=== PATIENT | female | born 1970 | race Hispanic/Latino ===

== ENCOUNTER 2018-04-10 23:16 | Emergency (ER) | payer SELFPAY ==
--- NOTE | 2018-04-10 23:49 | ER ---
Nurse's Notes [facility] Name: Azucena Moyer Age: 47 yrs Sex: Female : 1970 Arrival Date: 04/10/2018 Time: 23:19 Bed 15 Private MD: None, None Diagnosis: Left breast cellulitis Presentation: 04/10 23:29 Presenting complaint: Patient states: Patient reports multiple abscesses on the back of ea the head and boil to left chest that started a week ago. Pt reports purulent drainage to left breast. Complains of pain to neck 01/27. Transition of care: patient was not received from another setting of care. Onset of symptoms was April 10, 2018. Risk Assessment: Do you want to hurt yourself or someone else? Patient reports no desire to harm self or others. Initial Sepsis Screen: Does the patient meet any 2 criteria? No. Patient's initial sepsis screen is negative. Does the patient have a suspected source of infection? Yes: Skin breakdown/wound. Care prior to arrival: None. 23:29 Method Of Arrival: Ambulatory ea 23:29 Acuity: SOPHIE 3 ea Triage Assessment: 23:32 General: Appears uncomfortable, Behavior is calm, cooperative, appropriate for age. ea Pain: Complains of pain in right posterior aspect of neck. EENT: No signs and/or symptoms were reported regarding the EENT system. Neuro: Level of Consciousness is awake, alert, obeys commands, Oriented to person, place, time, situation. Cardiovascular: Patient's skin is warm and dry. Respiratory: Airway is patent Respiratory effort is even, unlabored, Respiratory pattern is regular, symmetrical. Derm: Wound noted left breast. - Immunization history:: Adult Immunizations up to date. - Social history:: Smoking status: Patient/guardian denies using tobacco. - Ebola Screening: : No symptoms or risks identified at this time. - Family history:: not pertinent. - Hospitalizations: : No recent hospitalization is reported. Screenin:32 Abuse screen: Denies threats or abuse. Nutritional screening: No deficits noted. ea Tuberculosis screening: No symptoms or risk factors identified. Fall Risk None identified. Assessment: 23:53 Reassessment: Patient and/or family updated on plan of care and expected duration. Pain ea level reassessed. Patient is alert, oriented x 3, equal unlabored respirations, skin warm/dry/pink. Discharge isntruction given to patient, verbalized the understanding of instruction. Vital Signs: 23:31 BP 120 / 80; Pulse 90; Resp 18; Temp 98.4; Pulse Ox 99% ; Weight 54.43 kg; Height 5 ft. ea 3 in. (160.02 cm); 23:31 Body Mass Index 21.26 (54.43 kg, 160.02 cm) ea ED Course: 23:19 Patient arrived in ED. es 23:19 None, None is Private Physician. es 23:22 Vinay Henry MD is Attending Physician. rn 23:24 Lyubov Loya is Primary Nurse. cc3 23:30 Triage completed. ea 23:33 Patient has correct armband on for positive identification. Bed in low position. Call ea light in reach. Side rails up X 1. 23:33 Arm band placed on right wrist. Patient placed in an exam room, on a stretcher, on ea pulse oximetry. 23:54 No provider procedures requiring assistance completed. Patient did not have IV access ea during this emergency room visit. Administered Medications: 23:45 Drug: Clindamycin 300 mg Route: PO; ea 23:55 Follow up: Response: Medication administered at discharge. ea Outcome: 23:47 Discharge ordered by . rn 23:54 Discharged to home ambulatory. ea 23:54 Condition: improved 23:54 Discharge instructions given to patient, Instructed on discharge instructions, follow up and referral plans. medication usage, Demonstrated understanding of instructions, follow-up care, medications, Prescriptions given X 1. 23:55 Patient left the ED. ea Signatures: Sera Moore Roman, MD MD rn Antunez, Elena, RN RN ea Cordel, Charlene cc3 Corrections: (The following items were deleted from the chart) 23:32 23:31 BP 120 / 80; Pulse 90bpm; Resp 18bpm; Pulse Ox 99%; Temp 98.4F; carmen ea
--- NOTE | 2018-04-10 23:49 | EDPHYS ---
Physician Documentation [facility] Name: Azucena Moyer Age: 47 yrs Sex: Female : 1970 Arrival Date: 04/10/2018 Time: 23:19 Bed 15 Private MD: None, None ED Physician iVnay Henry HPI: 04/10 23:41 This 47 yrs old Female presents to ER via Ambulatory with complaints of rn Abscess. 23:41 the patient presents with a swollen area of the left breast. Description: draining, rn erythematous, swollen. Onset: The symptoms/episode began/occurred 1 week(s) ago. Possible cause(s): unknown. Modifying factors: the symptoms are alleviated by squeezing the lesion and expressing the contents, the symptoms are aggravated by touching. Severity of symptoms: At their worst the symptoms were moderate, in the emergency department the symptoms have improved. The patient has experienced similar episodes in the past. REports has recurrent abscesses and swelling on scalp for years, gets better with abx, and has never needed incision and drainage, states fluid collects since had esau from head wound years ago. Recently noticed some swelling of left breast and tenderness, popped on its own, drained pus, reports had wound packed, but still swollen and needs abx. Not diabetic. . - Immunization history:: Adult Immunizations up to date. - Social history:: Smoking status: Patient/guardian denies using tobacco. - Ebola Screening: : No symptoms or risks identified at this time. - Family history:: not pertinent. - Hospitalizations: : No recent hospitalization is reported. ROS: 23:41 Constitutional: Negative for fever, chills, and weight loss, Neck: Negative for injury, rn pain, and swelling, Cardiovascular: + left breast pain, no chest pain Respiratory: Negative for shortness of breath, cough, wheezing, and pleuritic chest pain, Abdomen/GI: Negative for abdominal pain, nausea, vomiting, diarrhea, and constipation, MS/Extremity: Negative for injury and deformity, Skin: + swelling and redness of left breast Neuro: Negative for headache, weakness, numbness, tingling, and seizure. Exam: 23:41 Constitutional: This is a well developed, well nourished patient who is awake, alert, rn and in no acute distress. Head/Face: Normocephalic, 2 1cm areas of fluid collection occiput of scalp, no hair overlying, seems old surgical wound, no erythema/warmth, no skull depression. Chest/axilla: + left breast with 3cm induration around central open wound, no current drainage, no nipple changes, no fluctuance, wound with packing. Vital Signs: 23:31 BP 120 / 80; Pulse 90; Resp 18; Temp 98.4; Pulse Ox 99% ; Weight 54.43 kg; Height 5 ft. ea 3 in. (160.02 cm); 23:31 Body Mass Index 21.26 (54.43 kg, 160.02 cm) ea MDM: 23:22 Patient medically screened. rn 23:41 Differential diagnosis: abscess, cellulitis. Data reviewed: vital signs, nurses notes, rn and as a result, I will discharge patient. Counseling: I had a detailed discussion with the patient and/or guardian regarding: the historical points, exam findings, and any diagnostic results supporting the discharge/admit diagnosis, the need for outpatient follow up, to return to the emergency department if symptoms worsen or persist or if there are any questions or concerns that arise at home. Special discussion: I discussed with the patient/guardian in detail that at this point there is no indication for admission to the hospital. It is understood, however, that if the symptoms persist or worsen the patient needs to return immediately for re-evaluation. ED course: Pt with breast abscess that was opened and packed prior to arrival here, has had multiple abscesses in past, is here for abx, no change in chronic fluid collection of scalp, will dc with clindamycin and return precautions. Breast changes are acute, not chronic, but still recommend breast cancer screening to patient when infection is treated. . Administered Medications: 23:45 Drug: Clindamycin 300 mg Route: PO; ea 23:55 Follow up: Response: Medication administered at discharge. ea Disposition: 04/10/18 23:47 Discharged to Home. Impression: Left breast cellulitis. - Condition is Stable. - Discharge Instructions: Skin Abscess, Breast Self-Awareness, Cellulitis, Adult, Breast Cancer, Female. - Prescriptions for Clindamycin HCl 300 mg Oral Capsule - take 1 capsule by ORAL route every 6 hours for 10 days; 40 capsule. - Medication Reconciliation Form, Thank You Letter, Antibiotic Education, Prescription Opioid Use form. - Follow up: Private Physician; When: As needed; Reason: Recheck today's complaints, Re-evaluation by your physician. - Problem is new. - Symptoms have improved. Signatures: Vinay Henry MD MD rn Antunez, Elena, RN RN ea Corrections: (The following items were deleted from the chart) 23:55 23:47 04/10/2018 23:47 Discharged to Home. Impression: Left breast cellulitis. ea Condition is Stable. Forms are Medication Reconciliation Form, Thank You Letter, Antibiotic Education, Prescription Opioid Use. Follow up: Private Physician; When: As needed; Reason: Recheck today's complaints, Re-evaluation by your physician. Problem is new. Symptoms have improved. rn
[2018-04-10] MEDS ORDERED: CLINDAMYCIN HCL 150 MG CAP ONE (23:52)
== END 2018-04-10 23:55 | disposition home or self-care (01) ==
LOC: ER 23:16
DX: N61.0 Mastitis without abscess (principal)
CPT/HCPCS: 99283

== ENCOUNTER 2018-08-07 10:17 | Emergency (ER) | payer SELFPAY ==
--- OUTSIDE RECORDS SUMMARY | 2018-08-07 10:19 | XMS REPORT ---
:1970 [facility] Address [address] [place] [address] Dr. Bowman [address] [place] [id number] Care Team Providers Name Role Phone Unavailable Unavailable Unavailable Problems This patient has no known problems. Allergies, Adverse Reactions, Alerts This patient has no known allergies or adverse reactions. Medications This patient has no known medications.
[2018-08-07] MEDS ORDERED: NA CHLORIDE 0.9% 1,000 ML ONE (10:57)
[2018-08-07 11:16] LABS: Absolute Lymphocytes (CBC) 1.6 K/uL (0.7-4.9); Absolute Monocytes 0.4 K/uL (0.1-1.3); Absolute Neutrophil 2.7 K/uL (1.8-8.0); Basophils % 1.2 % (0-1.3); Eosinophils % 0.9 % (0-4.4); Hematocrit 38.7 % (36.0-45.0); Lymphocytes % 32.7 % (15.3-44.8); MPV 9.1 fL (7.6-11.3); Monocytes % 9.1 % (3.3-12.3); RBC Red Blood Cell Count 4.05 M/uL (3.86-4.86)
[2018-08-07 11:35] LABS: ALT/SGPT 12 U/L (12-78); AST/SGOT 8 U/L (15-37); Albumin 3.8 g/dL (3.4-5.0); Alkaline Phosphatase 73 U/L (45-117); BUN Blood Urea Nitrogen 9 mg/dL (7-18); Bicarbonate 28 mmol/L (21-32); Bilirubin Direct 0.1 mg/dL (0-0.2); Bilirubin Total 0.4 mg/dL (0.2-1.0); Glucose Level 303 mg/dL (74-106); Lipase 29 U/L (73-393); Potassium 3.6 mmol/L (3.5-5.1); Protein, Total 7.3 g/dL (6.4-8.2); Sodium Level 139 mmol/L (136-145)
[2018-08-07] MEDS ORDERED: MORPHINE 4 MG/ML SYR ONE (11:52)
[2018-08-07] MEDS ORDERED: ONDANSETRON 4 MG/2 ML VIAL ONE (11:52)
--- NOTE | 2018-08-07 12:21 | RAD REPORT ---
EXAM DESCRIPTION: CT - Abdomen Pelvis Wo Contrast - 08/07/2018 12:13 pm CLINICAL HISTORY: Abdominal pain. ABD PAIN COMPARISON: No comparisons TECHNIQUE: CT imaging of the abdomen and pelvis was performed without contrast. Solid organ, bowel a nd vascular assessment is limited due to lack of IV and oral contrast. All CT scans are performed using dose optimization technique as appropriate and may include automated exposure control or mA/KV adjustment according to patient size. FINDINGS: The lower lung kaufman are clear. The liver, spleen, pancreas, adrenal glands and kidneys are within normal limits for a limited non-co ntrast examination. No bowel obstruction, free air, free fluid or abscess. Moderate fecal retention in the colon. The zakiya endix is normal. The osseous structures are within normal limits. IMPRESSION: Moderate fecal retention in the colon. A limited non-contrast examination was performed as detailed.
[2018-08-07] MEDS ORDERED: INSULIN -REGULAR HUMAN 50 UNIT/0.5 ML ML ONE (12:54)
--- NOTE | 2018-08-07 13:37 | ER ---
Nurse's Notes [facility] Name: Azucena Moyer Age: 48 yrs Sex: Female : 1970 Arrival Date: 08/07/2018 Time: 10:19 Bed 15 Private MD: None, None Diagnosis: Abdominal and pelvic pain;Hyperglycemia, unspecified;Diabetes mellitis Presentation: 08/07 10:21 Presenting complaint: Patient states: right flank pain that began 2 months ago. Pt aa5 states "I was seen in [facility] and [facility] and back in June and they said that it was ulcerative colitis but now the pain is back". Pt denies N/V/D. Transition of care: patient was not received from another setting of care. Onset of symptoms was May 2018. Risk Assessment: Do you want to hurt yourself or someone else? Patient reports no desire to harm self or others. Initial Sepsis Screen: Does the patient meet any 2 criteria? No. Patient's initial sepsis screen is negative. Does the patient have a suspected source of infection? No. Patient's initial sepsis screen is negative. Care prior to arrival: None. 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 - Social history:: Smoking status: Patient/guardian denies using tobacco. - Ebola Screening: : No symptoms or risks identified at this time. Screenin:29 Abuse screen: Denies threats or abuse. Nutritional screening: No deficits noted. tw2 Tuberculosis screening: No symptoms or risk factors identified. Fall Risk None identified. Assessment: 10:56 General: Appears in no apparent distress. slender, Behavior is calm, cooperative, tw2 appropriate for age. Pain: Complains of pain in right flank. Neuro: Level of Consciousness is awake, alert, obeys commands, Oriented to person, place, time, situation. Cardiovascular: Denies chest pain, shortness of breath, Heart tones S1 S2 Patient's skin is warm and dry. Respiratory: Airway is patent Respiratory effort is even, unlabored, Respiratory pattern is regular, symmetrical, Breath sounds are clear bilaterally. GI: Abdomen is flat, Bowel sounds present X 4 quads. : No signs and/or symptoms were reported regarding the genitourinary system. EENT: No signs and/or symptoms were reported regarding the EENT system. Derm: No signs and/or symptoms reported regarding the dermatologic system. Musculoskeletal: Circulation, motion, and sensation intact. Range of motion: intact in all extremities. 11:29 Reassessment: Patient appears in no apparent distress at this time. Patient and/or tw2 family updated on plan of care and expected duration. Pain level reassessed. Patient is alert, oriented x 3, equal unlabored respirations, skin warm/dry/pink. pt requesting something for "the pain", provider notified. Patient states symptoms have not improved. 12:30 Reassessment: Patient appears in no apparent distress at this time. Patient and/or tw2 family updated on plan of care and expected duration. Pain level reassessed. Patient is alert, oriented x 3, equal unlabored respirations, skin warm/dry/pink. 13:53 Reassessment: Patient appears in no apparent distress at this time. Patient and/or tw2 family updated on plan of care and expected duration. Pain level reassessed. Patient is alert, oriented x 3, equal unlabored respirations, skin warm/dry/pink. Vital Signs: 10:24 BP 112 / 73; Pulse 105; Resp 16 S; Temp 97.6(TE); Pulse Ox 100% on R/A; Weight 45.36 kg aa5 (R); Height 5 ft. 3 in. (160.02 cm) (R); Pain 10/10; 11:30 BP 114 / 70; Pulse 97; Resp 17; Pulse Ox 99% on R/A; tw2 13:03 BP 119 / 86; Pulse 99; Resp 16 S; Pulse Ox 100% on R/A; jl7 10:24 Body Mass Index 17.71 (45.36 kg, 160.02 cm) aa5 ED Course: 10:19 Patient arrived in ED. mr 10:20 None, None is Private Physician. mr 10:23 Triage completed. aa5 10:23 Arm band placed on. aa5 10:28 Mejia Arizmendi MD is Attending Physician. kdr 10:29 Dee Cason, VALENTÍN is Primary Nurse. tw2 10:29 Bed in low position. Call light in reach. tw2 12:12 CT completed. Patient tolerated procedure well. Patient moved to CT via wheelchair. sj Patient moved back from CT. 12:13 Abdomen In Process Unspecified. EDMS 12:31 Missed attempt(s): 24 gauge in right hand. Bleeding controlled, band aid applied, pc1 catheter tip intact. 13:52 No provider procedures requiring assistance completed. Patient did not have IV access tw2 during this emergency room visit. Administered Medications: Discontinued: NS 0.9% 1000 ml IV at 1 bolus Per protocol; 1000 mL bolus 11:45 Drug: Zofran 4 mg Route: IVP; Site: left antecubital; tw2 13:18 Follow up: Response: No adverse reaction tw2 11:47 Drug: morphine 4 mg Route: IVP; Site: left antecubital; tw2 13:18 Follow up: Response: No adverse reaction; Pain is decreased tw2 11:48 Drug: NS 0.9% 1000 ml Route: IV; Rate: 1 bolus; Site: left antecubital; tw2 13:21 Follow up: IV Status: IV infiltrated; no fluids infused tw2 12:43 CANCELLED (no iv access at this time.): Insulin Regular Human 6 units IVP once tw2 12:46 Drug: Insulin Regular Human 6 units {Co-Signature: [id number] (Netta Ogden RN).} Route: Sub-Q; tw2 Site: right upper arm; 13:19 Follow up: Response: No adverse reaction; Blood sugar is lowered tw2 Point of Care Testing: Blood Glucose: 10:43 Blood Glucose: 283 mg/dL; pc1 13:12 Blood Glucose: 178 mg/dL; pc1 Ranges: Intake: Outcome: 13:35 Discharge ordered by . kdr 13:52 Discharged to home ambulatory. tw2 13:52 Condition: stable 13:52 Discharge instructions given to patient, Instructed on discharge instructions, follow up and referral plans. no drinking with medication, no driving heavy equipment, medication usage, Demonstrated understanding of instructions, follow-up care, medications, Prescriptions given X 2. 13:53 Patient left the ED. tw2 Signatures: Dispatcher [employer] EDMS Mejia Arizmendi MD MD [facility] Jonnathan, Loretta mr Stubbs, AraceliFrancie Cannon RN RN aa5 Dee Cason RN RN tw2 Netta Ogden RN RN jl7 Tiago Rodriguez RN jl7 Corrections: (The following items were deleted from the chart) 10:27 10:21 Presenting complaint: Patient states: left flank pain that began 2 months ago. Pt aa5 states "I was seen in [facility] and [facility] and back in June and they said that it was ulcerative colitis but now the pain is back". Pt denies N/V/D aa5
--- NOTE | 2018-08-07 13:37 | EDPHYS ---
Physician Documentation [facility] Name: Azucena Moyer Age: 48 yrs Sex: Female : 1970 Arrival Date: 08/07/2018 Time: 10:19 Bed 15 Private MD: None, None ED Physician Mejia Arizmendi HPI: 08/07 10:45 This 48 yrs old Female presents to ER via Ambulatory with complaints of Flank kdr Pain. 10:45 The patient complains of pain in the right flank, right mid back and right low back. kdr The pain does not radiate. Onset: The symptoms/episode began/occurred at an unknown time. Has been present since he was discharged from [facility] in mid June. Modifying factors: The symptoms are alleviated by nothing. the symptoms are aggravated by movement, palpation/percussion. Associated signs and symptoms: Pertinent positives: nausea, vomiting, Decrease appetite ? weight loss. Severity of pain: At its worst the pain was mild moderate just prior to arrival, in the emergency department the pain has improved mildly. The patient has experienced similar episodes in the past, chronically. The patient was seen at [facility] and [facility] [[email or web address]] in the last two months for similar problems. 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 - Social history:: Smoking status: Patient/guardian denies using tobacco. - Ebola Screening: : No symptoms or risks identified at this time. ROS: 10:45 Constitutional: Negative for fever, chills - may have had weight loss, Eyes: Negative kdr for injury, pain, redness, and discharge, Neck: Negative for injury, pain, and swelling, Cardiovascular: Negative for chest pain, palpitations, and edema, Respiratory: Negative for shortness of breath, cough, wheezing, and pleuritic chest pain, Back: Negative for injury and pain, : Negative for injury, bleeding, discharge, and swelling, MS/Extremity: Negative for injury and deformity. 10:45 Skin: Negative for injury, rash, and discoloration, Neuro: Negative for headache, weakness, numbness, tingling, and seizure activity. Psych: Negative for depression, anxiety, suicide ideation, homicidal ideation, and hallucinations, Allergy/Immunology: Negative for hives, rash, and allergies, Endocrine: Negative for neck swelling, polydipsia, polyuria, polyphagia, and marked weight changes, Hematologic/Lymphatic: Negative for swollen nodes, abnormal bleeding, and unusual bruising. 10:45 Abdomen/GI: Positive for abdominal pain, nausea, anorexia, Negative for vomiting, black/tarry stool, rectal pain, rectal bleeding. Exam: 13:30 Constitutional: This is a well developed, well nourished patient who is awake, alert, kdr and in no acute distress. Head/Face: Normocephalic, atraumatic. Eyes: Pupils equal round and reactive to light, extra-ocular motions intact. Lids and lashes normal. Conjunctiva and sclera are non-icteric and not injected. Cornea within normal limits. Periorbital areas with no swelling, redness, or edema. Neck: Trachea midline, no thyromegaly or masses palpated, and no cervical lymphadenopathy. Supple, full range of motion without nuchal rigidity, or vertebral point tenderness. No Meningismus. Chest/axilla: Normal chest wall appearance and motion. Nontender with no deformity. No lesions are appreciated. Cardiovascular: Regular rate and rhythm with a normal S1 and S2. No gallops, murmurs, or rubs. Normal PMI, no JVD. No pulse deficits. Respiratory: Lungs have equal breath sounds bilaterally, clear to auscultation and percussion. No rales, rhonchi or wheezes noted. No increased work of breathing, no retractions or nasal flaring. Back: No spinal tenderness. No costovertebral tenderness. Full range of motion. Skin: Warm, dry with normal turgor. Normal color with no rashes, no lesions, and no evidence of cellulitis. MS/ Extremity: Pulses equal, no cyanosis. Neurovascular intact. Full, normal range of motion. Neuro: Awake and alert, GCS 15, oriented to person, place, time, and situation. Cranial nerves II-XII grossly intact. Motor strength 5/5 in all extremities. Sensory grossly intact. Cerebellar exam normal. Normal gait. Psych: Awake, alert, with orientation to person, place and time. Behavior, mood, and affect are within normal limits. 13:30 Abdomen/GI: Inspection: abdomen appears normal, Bowel sounds: active, diminished, in all quadrants, Palpation: soft, mild abdominal tenderness, in the anterior aspect of right lateral abdomen. Vital Signs: 10:24 BP 112 / 73; Pulse 105; Resp 16 S; Temp 97.6(TE); Pulse Ox 100% on R/A; Weight 45.36 kg aa5 (R); Height 5 ft. 3 in. (160.02 cm) (R); Pain 10/10; 11:30 BP 114 / 70; Pulse 97; Resp 17; Pulse Ox 99% on R/A; tw2 13:03 BP 119 / 86; Pulse 99; Resp 16 S; Pulse Ox 100% on R/A; jl7 10:24 Body Mass Index 17.71 (45.36 kg, 160.02 cm) aa5 MDM: 13:30 Data reviewed: vital signs, nurses notes, lab test result(s), radiologic studies. kdr Counseling: I had a detailed discussion with the patient and/or guardian regarding: the historical points, exam findings, and any diagnostic results supporting the discharge/admit diagnosis, lab results, radiology results, the need for outpatient follow up. 13:35 Patient medically screened. kdr 08/07 10:44 Order name: Basic Metabolic Panel; Complete Time: 12:30 kdr 08/07 10:44 Order name: CBC with Diff; Complete Time: 11:34 kdr 08/07 10:44 Order name: Creatinine for Radiology; Complete Time: 12:30 kdr 08/07 10:44 Order name: Hepatic Function; Complete Time: 12:30 kdr 08/07 10:44 Order name: Lipase; Complete Time: 12:30 kdr 08/07 10:44 Order name: IV Saline Lock; Complete Time: 13:19 kdr 08/07 10:44 Order name: Labs collected and sent; Complete Time: 13:19 kdr 08/07 12:11 Order name: Abdomen ; Complete Time: 12:30 EDMS 08/07 10:44 Order name: FSBS; Complete Time: 10:46 kdr 08/07 12:32 Order name: FSBS: 30 minutes after insulin infusion; Complete Time: 13:18 kdr Administered Medications: Discontinued: NS 0.9% 1000 ml IV at 1 bolus Per protocol; 1000 mL bolus 11:45 Drug: Zofran 4 mg Route: IVP; Site: left antecubital; tw2 13:18 Follow up: Response: No adverse reaction tw2 11:47 Drug: morphine 4 mg Route: IVP; Site: left antecubital; tw2 13:18 Follow up: Response: No adverse reaction; Pain is decreased tw2 11:48 Drug: NS 0.9% 1000 ml Route: IV; Rate: 1 bolus; Site: left antecubital; tw2 13:21 Follow up: IV Status: IV infiltrated; no fluids infused tw2 12:43 CANCELLED (no iv access at this time.): Insulin Regular Human 6 units IVP once tw2 12:46 Drug: Insulin Regular Human 6 units {Co-Signature: [email or web address] (Netta Ogden RN).} Route: Sub-Q; tw2 Site: right upper arm; 13:19 Follow up: Response: No adverse reaction; Blood sugar is lowered tw2 Point of Care Testing: Blood Glucose: 10:43 Blood Glucose: 283 mg/dL; pc1 13:12 Blood Glucose: 178 mg/dL; pc1 Ranges: Critical Glucose Levels:Adult <50 mg/dl or >400 mg/dl <40 mg/dl or >180 mg/dl Disposition: 08/07/18 13:35 Discharged to Home. Impression: Abdominal and pelvic pain, Hyperglycemia, unspecified, Diabetes mellitis. - Condition is Stable. - Discharge Instructions: Abdominal Pain, Adult, [id number], Hyperglycemia, [id number]. - Prescriptions for Bentyl 20 mg Oral Tablet - take 1 tablet by ORAL route every 6 hours As needed; 20 tablet. Tramadol 50 mg Oral Tablet - take 1 tablet by ORAL route every 8 hours as needed; 12 tablet. - Medication Reconciliation Form, Thank You Letter, Prescription Opioid Use, Work release form form. - Follow up: Private Physician; When: 2 - 3 days; Reason: If symptoms return, Further diagnostic work-up, Recheck today's complaints, Continuance of care, Re-evaluation by your physician. - Problem is new. - Symptoms have improved. Signatures: Dispatcher [employer] EDMejia Bass MD MD kdr Calderon, Audri, RN RN aa5 Dee Cason, RN RN tw2 Netta Ogden RN jl7 Corrections: (The following items were deleted from the chart) 12:11 10:44 Abdomen Pelvis W [id number] ordered. EDMS EDMS 12:43 12:32 Insulin Regular Human 6 units IVP once ordered. kdr tw2 13:53 13:35 08/07/2018 13:35 Discharged to Home. Impression: Abdominal and pelvic pain; tw2 Hyperglycemia, unspecified; Diabetes mellitis. Condition is Stable. Forms are Work release form, Medication Reconciliation Form, Thank You Letter, Antibiotic Education, Prescription Opioid Use. Follow up: Private Physician; When: 2 - 3 days; Reason: If symptoms return, Further diagnostic work-up, Recheck today's complaints, Continuance of care, Re-evaluation by your physician. Problem is new. Symptoms have improved. kdr
== END 2018-08-07 13:53 | disposition home or self-care (01) ==
LOC: ER 10:17
DX: R10.2 Pelvic and perineal pain (principal); E11.65 Type 2 diabetes mellitus with hyperglycemia; Z79.4 Long term (current) use of insulin; Z88.1 Allergy status to other antibiotic agents
CPT/HCPCS: 36415; 74176; 80048; 80076; 82962; 83690; 85025; 96361; 96372; 96374; 96375; 99284; J2405; J7030